=== PATIENT | male | born 1980 | race Caucasian/White ===

== ENCOUNTER 2021-09-18 11:13 | Emergency (ER) | payer OTHER ==
[~2021-09-18] VITALS: Ht 193 cm; Wt 127.0 kg
== END 2021-09-18 13:33 | disposition home or self-care (01) ==
LOC: ER 11:13
DX: S01.01XA Laceration without foreign body of scalp, initial encounter (principal); W11.XXXA Fall on and from ladder, initial encounter; F17.290 Nicotine dependence, other tobacco product, uncomplicated
CPT/HCPCS: 12001; 99282-25